=== PATIENT | male | born 1965 | race Caucasian/White ===

== ENCOUNTER → 2017-07-29 | Outpatient (CLI) | payer BC ==
--- NOTE | 2017-07-29 11:32 | EST ---
EXERCISE STRESS DATE OF SERVICE: 07/29/2017 AGE: 51 SEX: Male HT: 5'11" WT: PROTOCOL: Freddy STAGE: IV DURATION OF EXERCISE: 13 minutes HEART RATE REST: 67 BLOOD PRESSURE REST: 150/102 MAXIMUM HEART RATE ACHIEVED: 153 MAXIMUM BLOOD PRESSURE: 257/132 85% MPHR: 143 100% MPHR: 168 METS: 14 INDICATIONS: Hypertension. CLINICAL INFORMATION: Baseline EKG shows sinus rhythm, normal axis, normal intervals. Patient exercised on Freddy protocol for a total of 13 minutes achieving 14 METs, 85% of predicted maximal heart rate without chest pain or diagnostic ST-segment depression. CONCLUSIONS: 1. Excellent exercise tolerance. 2. Negative stress test by EKG criteria. MMODL / IJN: [id number] /
--- NOTE | 2017-07-29 11:54 | ECHOF ---
Referral Reason:I10 Hypertension MEASUREMENTS -------- HEIGHT: 180.3 cm WEIGHT: 87.1 kg BP: 150/102 RVIDd: 3.2 cm (< 3.3) IVSd: 1.2 cm (0.6 - 1.1) LVIDd: 4.6 cm (3.9 - 5.3) LVPWd: 1.1 cm (0.6 - 1.1) IVSs: 1.8 cm LVIDs: 3.3 cm LVPWs: 1.7 cm LA Diam: 3.1 cm (2.7 - 3.8) LAESV Index (A-L): 22.78 ml/m Ao Diam: 3.7 cm (2.0 - 3.7) AV Cusp: 2.3 cm (1.5 - 2.6) MV EXCURSION: 13.970 mm (> 18.000) MV EF SLOPE: 55 mm/s (70 - 150) EPSS: 0.7 cm MV E Pranav: 0.64 m/s MV DecT: 250 ms MV A Pranav: 0.59 m/s MV E/A Ratio: 1.07 FINDINGS -------- Sinus rhythm. This was a technically good study. The left ventricular size is normal. There is borderline concentric left ventricular hypertrophy. Overall left ventricular systolic function is normal with, an EF between 55 - 60 %. The right ventricle is normal in size. Normal LA size by volume 22+/-6 ml/m2. The right atrium is normal in size. There is mild aortic valve sclerosis. There is trace to mild mitral regurgitation. No regurgitation noted Trace/mild (physiologic) pulmonic regurgitation. The aortic root size is normal. IVC Not well visulized. There is no pericardial effusion. CONCLUSIONS -------- 1. Sinus rhythm. 2. This was a technically good study. 3. The left ventricular size is normal. 4. There is borderline concentric left ventricular hypertrophy. 5. Overall left ventricular systolic function is normal with, an EF between 55 - 60 %. 6. The right ventricle is normal in size. 7. Normal LA size by volume 22+/-6 ml/m2. 8. The right atrium is normal in size. 9. There is mild aortic valve sclerosis. 10. There is trace to mild mitral regurgitation. 11. No regurgitation noted 12. Trace/mild (physiologic) pulmonic regurgitation. 13. The aortic root size is normal. 14. IVC Not well visulized. 15. There is no pericardial effusion. CYLINDER WORKER: Letty Velazquez RDCS
== END | disposition home or self-care (01) ==
LOC: RADNMMAIN 10:06
PROVIDERS: ATTEND Internal Medicine
DX: I35.8 Other nonrheumatic aortic valve disorders (principal); I11.9 Hypertensive heart disease without heart failure
CPT/HCPCS: 93017; 93306